=== PATIENT | male | born 1955 | race Caucasian/White ===

== ENCOUNTER 2017-12-03 08:32 | Day surgery (SDC) | payer BC ==
[2017-11-25 09:19] VITALS: BMI 24.5
[2017-12-03] MEDS ORDERED: Propofol 10 mg/ml Inj (20 ML) ONE (11:23)
[2017-12-03] MEDS ORDERED: Sodium Chloride 0.9% 1,000 ML IV SCH (12:30)
[2017-12-03 13:41] VITALS: BP 113/76; PULSE 56; RESP 16; TEMP 98.1; O2SAT 100
== END 2017-12-03 14:00 | disposition home or self-care (01) ==
LOC: ENDO 08:32
PROVIDERS: ATTEND Internal Medicine Gastroenterology
DX: Z12.11 Encounter for screening for malignant neoplasm of colon (principal); D12.3 Benign neoplasm of transverse colon; K63.5 Polyp of colon; K62.1 Rectal polyp; K57.30 Diverticulosis of large intestine without perforation or abscess without bleeding; K64.8 Other hemorrhoids
CPT/HCPCS: 45380; 45385; 82948; 88305; J2001; J2704; J7030; J7040